=== PATIENT | female | born 1975 | race Caucasian/White ===

== ENCOUNTER → 2016-11-30 | Outpatient (CLI) | payer MEDICAID | LOC: RAD 17:13 | PROVIDERS: ATTEND Family Medicine | DX: M51.27 Other intervertebral disc displacement, lumbosacral region (principal); M62.838 Other muscle spasm | CPT/HCPCS: 72040; 72100 ==

== ENCOUNTER → 2017-09-04 | Outpatient (CLI) | payer MEDICAID, OTHER ==
[2017-09-05 15:13] LABS: LYME DISEASE IGG AND IGM AB <0.91 ISR (0.00-0.90)
== END ==
LOC: OD 11:07
PROVIDERS: ATTEND Specialist
DX: A69.20 Lyme disease, unspecified (principal)
CPT/HCPCS: 36415; 82607; 85652; 86617; 86618

== ENCOUNTER 2018-03-19 04:50 | Emergency (ER) | payer OTHER ==
[2018-03-19 05:05] VITALS: BP 146/76
[2018-03-19 06:14] LABS: ABSOLUTE BASOPHILS # (AUTO) 0.1 10^3/uL (0.0-0.2); ABSOLUTE EOSINOPHILS # (AUTO) 0.1 10^3/uL (0.0-0.6); ABSOLUTE LYMPHOCYTES (AUTO) 1.2 10^3/uL (0.5-4.7); ABSOLUTE MONOCYTES (AUTO) 0.7 10^3/uL (0.1-1.4); ABSOLUTE NEUT (AUTO) 11.8 10^3/uL (1.7-8.2); BASOPHILS % (AUTO) 0.5 % (0-2); EOSINOPHILS % (AUTO) 0.4 % (0-6); HEMATOCRIT 49.5 % (36.0-47.0); HEMOGLOBIN 16.6 g/dL (12.0-15.5); LYMPHOCYTES % (AUTO) 8.4 % (13-45); MEAN CORPUSCULAR HEMOGLOBIN 30.6 pg (27.0-33.4); MEAN CORPUSCULAR HGB CONC 33.6 g/dL (32.0-36.0); MEAN CORPUSCULAR VOLUME 91 fl (80-97); MONOCYTES % (AUTO) 5.2 % (3-13); PLATELET COUNT 205 10^3/uL (150-450); RED BLOOD COUNT 5.43 10^6/uL (3.72-5.28); RED CELL DISTRIBUTION WIDTH 13.7 % (11.5-14.0); SEGMENTED NEUTROPHILS % (AUTO) 85.5 % (42-78); TOTAL CELLS COUNTED % (AUTO) 100 %; WHITE BLOOD COUNT 13.8 10^3/uL (4.0-10.5)
--- NOTE | 2018-03-19 06:27 | ER Document Report ---
ED General - General Chief Complaint: Other Stated Complaint: THYROID ISSUES Time Seen by Provider: 03/19/18 06:16 TRAVEL OUTSIDE OF THE [place] IN LAST 30 DAYS: No - HPI Notes: 43-year-old female with a stated history of "a lot of problems" who presents with several complaints. Primarily she states that she is chronically just feeling fatigued, is concerned about her thyroid, and just feels nervous. Labs were ordered by another physician prior to my evaluation of the patient. After extensive discussion, she indicates that she is following up in an outpatient clinic next week, and ultimately arrives at the thrust of her visit which is that she just needs some pain medicine to get her through the week. When questioned about various classes, she indicates she is allergic to NSAIDs and broaches a subjective receiving a weeks worth of oxycodone. Otherwise she denies any unplanned weight loss. No fevers. States she sometimes feels that her "blood is boiling". Indicates that she had an equivocal Lyme disease test 8 years ago but was treated. No other modifying factors, no other associated symptoms, no other provocative or palliative factors. - Related Data Allergies/Adverse Reactions: ibuprofen [Ibuprofen] Allergy (Verified 03/19/18 06:58) morphine [Morphine] Allergy (Verified 03/19/18 06:58) NSAIDS (Non-Steroidal Anti-Inflamma [Nsaids] Allergy (Verified 03/19/18 06:58) Past Medical History - Social History Smoking Status: Current Some Day Smoker Chew tobacco use (# tins/day): No Frequency of alcohol use: None Drug Abuse: None Family History: Arthritis, Malignancy, CAD, CVA, DM, Hyperlipidemia, Hypertension, Reviewed & Not Pertinent Patient has suicidal ideation: No Patient has homicidal ideation: No - Past Medical History Cardiac Medical History: Reports: Hx Hypertension Pulmonary Medical History: Reports: Hx COPD Neurological Medical History: Reports: Hx Migraine Renal/ Medical History: Denies: Hx Peritoneal Dialysis Malignancy Medical History: Reports: Hx Cervical Cancer GI Medical History: Reports: Hx Gastroesophageal Reflux Disease Musculoskeltal Medical History: Psychiatric Medical History: Reports: Hx Anxiety Infectious Medical History: Past Surgical History: Reports: Hx Section, Hx Hysterectomy, Hx Orthopedic Surgery - right arm fracture - Immunizations Immunizations up to date: Yes Hx Diphtheria, Pertussis, Tetanus Vaccination: Yes - unk Review of Systems - Review of Systems Notes: Review of systems as in history of present illness, otherwise no significant headache, chest pain, abdominal pain. Physical Exam - Vital signs Vitals: Temp Pulse Resp BP Pulse Ox 97.7 F 77 16 146/76 H 99 03/19/18 05:01 03/19/18 05:01 03/19/18 05:01 03/19/18 05:01 03/19/18 05:01 - Notes Notes: General: Well developed . HEENT: Normocephalic, atraumatic. Pupils equal round reactive to light. No JVD. No thyromegaly, no thyroid bruit Chest: No trauma. Respiratory: Good air exchange, normal excursion. Cardiac: Regular rhythm. No murmurs or gallops. Abdomen: Soft, benign. Nondistended. Nontender. Back: No asymmetry or gross abnormality. Motor: Grossly normal power and tone. Neurologic: Alert, nonfocal. Cranial nerves II-12 are intact. Sensation intact. Vascular: Well perfused. Normal peripheral pulses. Skin: No petechiae or purpura. Course - Re-evaluation Re-evalutation: 03/19/18 06:27 43-year-old female with the after mentioned symptoms. Currently laboratory evaluation is pending.. She may have some element of withdrawal. Otherwise she has a benign examination, no high risk features. Will continue serial examinations and evaluate labs to underlying thyroid dysfunction, electrolyte abnormality or renal dysfunction. Patient is reevaluated when labs are back. I ordered IV antiemetics but she is declined. She is hyper focused on receiving opiate analgesia for her reported pain and symptoms. Review labs show mild leukocytosis. Her TSH is slightly depressed, however, free T3 and T4 are normal. Chemistries are otherwise grossly unremarkable. Patient's mother has now entered the room. Both the patient and her mother are frustrated and demanding that we do MRIs and order test to see if this is Lyme disease and if her "organs are inflamed". Patient has become exceedingly irate and demanding that we "figure this out". I spent a great deal of time going over in great detail with the patient and her mother what I am able to achieve in the emergency department what is more appropriately worked up as an outpatient. Patient does have outpatient follow-up by her admission. I have also again explained to them at great length that I am uncomfortable prescribing opiate pain medication for her reported "organ inflammation" that is been going on for years now. I have offered her haloperidol for nausea and pain modulation, she has however declined. She continues to decline Tylenol, states she is NSAID allergic, and refuses any nonopiate medication. Patient does have what appears to be a strong component of anxiety. I have done my best to reassure her and indicate that she can appropriately follow this up as an outpatient. On continued review it appears that none of these issues are acute. Did note that review of her lab indices indicate some element of hemoconcentration. She is not vomiting, not having diarrhea, is encouraged to increase her fluid intake. 03/19/18 08:35 - Vital Signs Vital signs: Temp Pulse Resp BP Pulse Ox 97.7 F 77 16 146/76 H 99 03/19/18 05:01 03/19/18 05:01 03/19/18 05:01 03/19/18 05:01 03/19/18 05:01 - Laboratory Result Diagrams: 03/19/18 06:00 03/19/18 05:45 Laboratory results interpreted by me: 03/19/18 03/19/18 03/19/18 05:45 05:45 06:00 WBC 13.8 H RBC 5.43 H Hgb 16.6 H Hct 49.5 H Seg Neutrophils % 85.5 H Lymphocytes % 8.4 L Absolute Neutrophils 11.8 H Sodium 146.9 H Chloride 109 H TSH 0.26 L Discharge - Discharge Clinical Impression: Nausea, Pain Disposition: HOME, SELF-CARE Instructions: Nausea or Vomiting, Nonspecific ([facility]), Pain Management Prescriptions: Ondansetron [Zofran Odt 4 mg Tablet] 1 - 2 tab PO Q4H PRN #15 tab.rapdis PRN Reason: For Nausea/Vomiting
[2018-03-19 07:02] LABS: FREE T3 4.17 pg/mL (2.77-5.27); FREE T4 (FREE THYROXINE) 1.07 ng/dL (0.78-2.19)
[2018-03-19 07:15] LABS: THYROID STIMULATING HORMONE 0.26 uIU/mL (0.47-4.68)
[2018-03-19 07:30] LABS: ALANINE AMINOTRANSFERASE 30 U/L (9-52); ALBUMIN 4.1 g/dL (3.5-5.0); ALKALINE PHOSPHATASE 76 U/L (38-126); ANION GAP 11 (5-19); ASPARTATE AMINO TRANSFERASE 19 U/L (14-36); BILIRUBIN,DIRECT 0.3 mg/dL (0.0-0.4); BILIRUBIN,TOTAL 0.3 mg/dL (0.2-1.3); BLOOD UREA NITROGEN 9 mg/dL (7-20); CALCIUM 9.7 mg/dL (8.4-10.2); CARBON DIOXIDE 27 mmol/L (22-30); CHLORIDE 109 mmol/L (98-107); GLUCOSE 102 mg/dL (75-110); POTASSIUM 3.9 mmol/L (3.6-5.0); SODIUM 146.9 mmol/L (137-145); TOTAL PROTEIN 6.9 g/dL (6.3-8.2)
[2018-03-19] MEDS ORDERED: ONDANSETRON 4 MG TAB.RAPDIS PO ONE (07:36)
== END 2018-03-19 08:01 | disposition home or self-care (01) ==
LOC: ER 04:50
DX: R11.0 Nausea (principal); R52 Pain, unspecified; R53.83 Other fatigue; D72.829 Elevated white blood cell count, unspecified; R94.6 Abnormal results of thyroid function studies; I10 Essential (primary) hypertension; J44.9 Chronic obstructive pulmonary disease, unspecified; F17.200 Nicotine dependence, unspecified, uncomplicated
CPT/HCPCS: 99283; 36415; 84439; 84443; 85025; 80053; 84481; S0119

== ENCOUNTER 2018-04-24 11:14 | Emergency (ER) | payer OTHER ==
[2018-04-24 11:28] VITALS: BP 117/69
[2018-04-24] MEDS ORDERED: LIDOCAINE 5% (700 MG) TRANSDERMAL ADH..PATCH TP ONE (12:39)
[2018-04-24] MEDS ORDERED: LIDOCAINE 2% VISCOUS SOLN 20 ML UDCUP PO ONE (12:44)
[2018-04-24] MEDS ORDERED: MAG HYDROX/AL HYDROX/SIMETH SUSP 30 ML UDCUP PO ONE (12:44)
[2018-04-24] MEDS ORDERED: METOCLOPRAMIDE HCL ORAL SOLN 10 MG/10 ML UDCUP PO ONE (12:44)
--- NOTE | 2018-04-24 12:48 | ER Document Report ---
ED General - General Chief Complaint: Sore Throat Stated Complaint: THROAT SWELLING Time Seen by Provider: 04/24/18 12:34 TRAVEL OUTSIDE OF THE [place] IN LAST 30 DAYS: No - HPI Patient complains to provider of: Throat pain Notes: Patient coming in for evaluation of throat pain. Patient has known thyroid nodules that she is following up with the [facility] tomorrow to have surgery scheduled to remove thyroid nodules. Patient states she has been on medication many months back for pain control however ran out of this medication patient states that the pain is increased over the last few days. Patient states pain in her neck patient states no shortness of breath is talking normal sinuses no signs of any airway obstruction upon my initial evaluation. - Related Data Allergies/Adverse Reactions: ibuprofen [Ibuprofen] Allergy (Verified 04/24/18 12:32) morphine [Morphine] Allergy (Verified 04/24/18 12:32) NSAIDS (Non-Steroidal Anti-Inflamma [Nsaids] Allergy (Verified 04/24/18 12:32) Past Medical History - Social History Smoking Status: Never Smoker Chew tobacco use (# tins/day): No Frequency of alcohol use: None Drug Abuse: None Family History: Arthritis, Malignancy, CAD, CVA, DM, Hyperlipidemia, Hypertension, Reviewed & Not Pertinent Patient has suicidal ideation: No Patient has homicidal ideation: No - Past Medical History Cardiac Medical History: Reports: Hx Hypertension Pulmonary Medical History: Reports: Hx COPD Neurological Medical History: Reports: Hx Migraine Renal/ Medical History: Denies: Hx Peritoneal Dialysis Malignancy Medical History: Reports: Hx Cervical Cancer GI Medical History: Reports: Hx Gastroesophageal Reflux Disease Musculoskeltal Medical History: Psychiatric Medical History: Reports: Hx Anxiety Infectious Medical History: Past Surgical History: Reports: Hx Section, Hx Hysterectomy, Hx Orthopedic Surgery - right arm fracture - Immunizations Immunizations up to date: Yes Hx Diphtheria, Pertussis, Tetanus Vaccination: Yes - unk Review of Systems - Review of Systems Constitutional: No symptoms reported EENT: Throat pain Cardiovascular: No symptoms reported Respiratory: No symptoms reported Gastrointestinal: No symptoms reported Genitourinary: No symptoms reported Female Genitourinary: No symptoms reported Musculoskeletal: No symptoms reported Skin: No symptoms reported Hematologic/Lymphatic: No symptoms reported Neurological/Psychological: No symptoms reported -: Yes All other systems reviewed and negative Physical Exam - Vital signs Vitals: Temp Pulse Resp BP Pulse Ox 99.0 F 94 20 117/69 96 04/24/18 11:27 04/24/18 11:27 04/24/18 11:27 04/24/18 11:27 04/24/18 11:27 Interpretation: Normal - General General appearance: Appears well, Alert - HEENT Head: Normocephalic, Atraumatic Eyes: Normal Conjunctiva: Normal Cornea: Normal Pupils: PERRL Ears: Normal External canal: Normal Tympanic membrane: Normal Sinus: Normal Nasal: Normal Mouth/Lips: Normal Pharynx: Normal Neck: Other - Small thyroid nodule felt in the superior lobe of the right side of the thyroid freely mobile - Respiratory Respiratory status: No respiratory distress Chest status: Nontender Breath sounds: Normal Chest palpation: Normal - Cardiovascular Rhythm: Regular Heart sounds: Normal auscultation Murmur: No - Abdominal Inspection: Normal Distension: No distension Bowel sounds: Normal Tenderness: Nontender Organomegaly: No organomegaly - Back Back: Normal, Nontender - Extremities General upper extremity: Normal inspection, Nontender, Normal color, Normal ROM , Normal temperature General lower extremity: Normal inspection, Nontender, Normal color, Normal ROM , Normal temperature, Normal weight bearing. No: Juventino's sign - Neurological Neuro grossly intact: Yes Cognition: Normal Orientation: AAOx4 Salome Coma Scale Eye Opening: Spontaneous Bentley Coma Scale Verbal: Oriented Salome Coma Scale Motor: Obeys Commands Bentley Coma Scale Total: 15 Speech: Normal Motor strength normal: LUE, RUE, LLE, RLE Sensory: Normal - Psychological Associated symptoms: Normal affect, Normal mood - Skin Skin Temperature: Warm Skin Moisture: Dry Skin Color: Normal Course - Re-evaluation Re-evalutation: 04/24/18 19:49 Surveillance of airway compromise seen. Explained to patient at this time would not be able to give the patient any narcotic pain medication for her symptoms however would recommend we try lidocaine patches and a Magic mouthwash with lidocaine in it. Patient agreed patient did receive some relief of her symptoms with that therapy therefore patient was discharged home. - Vital Signs Vital signs: Temp Pulse Resp BP Pulse Ox 99.0 F 94 20 117/69 96 04/24/18 11:27 04/24/18 11:27 04/24/18 11:27 04/24/18 11:27 04/24/18 11:27 Discharge - Discharge Clinical Impression: Throat pain, Thyroid nodule Condition: Good Disposition: HOME, SELF-CARE Instructions: Sore Throat ([facility]) Additional Instructions: Follow-up with your doctor tomorrow for further evaluation of your pain. Return to ER for any concerning issues. Prescriptions: Nystatin/Dexameth/Diphen [Magic Mouthwash ([facility] Formula) Susp] 5 ml PO QID #120 ml Forms: Return to Work
== END 2018-04-24 12:57 | disposition home or self-care (01) ==
LOC: ER 11:14
DX: J02.9 Acute pharyngitis, unspecified (principal); E04.1 Nontoxic single thyroid nodule; I10 Essential (primary) hypertension; J44.9 Chronic obstructive pulmonary disease, unspecified
CPT/HCPCS: 99282; J3490